=== PATIENT | female | born 1960 | race Two or more races ===

== ENCOUNTER 2024-02-07 23:45 | Emergency (ER) | payer OTHER ==
[2024-02-08 00:07] VITALS: O2SAT 100
[2024-02-08 00:19] LABS: BASOPHILS % (AUTO) 0.6 %; EOSINOPHILS # (AUTO) 0.1 10^3/uL (0.0-0.7); EOSINOPHILS % (AUTO) 1.7 %; HCT - HEMATOCRIT 44.3 % (37.0-47.0); HGB - HEMOGLOBIN 14.2 g/dL (12.0-16.0); LYMPHOCYTES # (AUTO) 3.1 10^3/uL (1.5-3.5); LYMPHOCYTES % (AUTO) 44.2 %; MEAN CORPUSCULAR HGB CONC 32.1 g/dL (32.0-36.0); MEAN CORPUSCULAR VOLUME 90.4 fL (81.0-99.0); MEAN PLATELET VOLUME 10.4 fL (7.9-10.8); MONOCYTES # (AUTO) 0.5 10^3/uL (0.0-1.0); MONOCYTES % (AUTO) 6.9 %; NEUTROPHILS # (AUTO) 3.2 10^3/uL (1.5-6.6); NEUTROPHILS % (AUTO) 46.5 %; PLT - PLATELET COUNT 242 10^3/uL (130-450); RED CELL DISTRIBUTION WIDTH 12.7 % (12.0-15.0)
[2024-02-08 00:34] LABS: ALBUMIN 4.5 g/dL (3.2-5.5); ALBUMIN/GLOBULIN RATIO 1.5 (1.0-2.2); BILIRUBIN,TOTAL 0.3 mg/dL (0.2-1.0); CALCIUM 9.6 mg/dL (8.5-10.3); CREATININE 0.7 mg/dL (0.6-1.3); POTASSIUM 3.7 mmol/L (3.5-4.5); TOTAL PROTEIN 7.6 g/dL (6.4-8.9)
--- NOTE | 2024-02-08 01:03 | ED Physician Documentation ---
History of Present Illness - Stated complaint Stated Complaint: HIGH BP/DIZZY - Chief complaint Chief Complaint: Neuro - History obtained from History obtained from: Patient - Additonal information Additional information: Patient is a 63-year-old female presenting for evaluation of elevated blood pressure reading. Patient states that earlier this evening she was out with her son running errands and she had a brief episode where she felt dizzy and nausea which lasted for few seconds. She reports she usually checks her blood pressure at home even though she does not have a history of hypertension but had not checked it for a few weeks. She checked it this evening and noted that her blood pressure was quite elevated. She then to continue to recheck it and it would not go down. She did have 1 reading that was slightly better than the rest and thought it was improving but then rechecked it and saw that it was going up again which concerned her. She denies a headache, ongoing dizziness, changes to vision, chest pain, difficulty breathing, extremity weakness or numbness. Review of Systems Constitutional: denies: Fever Cardiac: denies: Chest pain / pressure Respiratory: denies: Dyspnea GI: denies: Abdominal Pain Neurologic: denies: Syncope PD PAST MEDICAL HISTORY - Past Medical History Past Medical History: Yes - Past Surgical History Past Surgical History: Yes General: Appendectomy /COMBO WELDER: Hysterectomy - Present Medications Home Medications: Ambulatory Orders Medication Instructions Recorded Confirmed No Known Home Medications 02/07/24 02/07/24 - Allergies Allergies/Adverse Reactions: Allergies Allergy/AdvReac Type Severity Reaction Status Date / Time No Known Drug Allergies Allergy Verified 02/07/24 23:58 - Social History Does the pt smoke?: No Smoking Status: Never smoker Does the pt drink ETOH?: No PD ED PE NORMAL - General General: Alert and oriented X 3, No acute distress, Well developed/nourished - HEENT HEENT: Atraumatic, PERRL, EOMI, Moist mucous membranes, Pharynx benign - Neck Neck: Supple, no meningeal sign - Cardiac Cardiac: RRR, Strong equal pulses - Respiratory Respiratory: No respiratory distress, Clear bilaterally - Abdomen Abdomen: Normal bowel sounds, Soft, Non tender, Non distended - Derm Derm: Warm and dry - Extremities Extremities: No edema - Neuro Neuro: Alert and oriented X 3, looper fixer 2-12 intact, No motor deficit, No sensory deficit, Normal speech, Other (Normal gait) Results - Vitals Vitals: Vital Signs - 24 hr 02/07/24 02/08/24 23:51 01:04 Temperature 36.2 C L Heart Rate 78 Respiratory 16 Rate Blood Pressure 191/111 H 165/94 H O2 Saturation 100 Oxygen O2 Source Room air - EKG (time done) 1234 EKG releavant findings:: EKG personally interpreted by author of this note. Relevant findings are: Rate 65, normal sinus rhythm, no STEMI, QTc 447 - Labs Labs: Laboratory Tests 02/08/24 02/08/24 00:15 00:15 WBC 7.0 RBC 4.90 Hgb 14.2 Hct 44.3 MCV 90.4 MCH 29.0 MCHC 32.1 RDW 12.7 Plt Count 242 MPV 10.4 Neut # (Auto) 3.2 Lymph # (Auto) 3.1 [place] # (Auto) 0.5 Eos # (Auto) 0.1 Baso # (Auto) 0.0 Absolute Nucleated RBC 0.00 Nucleated RBC % 0.0 Sodium 140 Potassium 3.7 Chloride 103 Carbon Dioxide 29 Anion Gap 8.0 BUN 16 Creatinine 0.7 Estimated GFR (MDRD) 85 L Glucose 100 Calcium 9.6 Total Bilirubin 0.3 AST 18 ALT 17 Alkaline Phosphatase 96 Total Protein 7.6 Albumin 4.5 Globulin 3.1 Albumin/Globulin Ratio 1.5 Lipase 36 PD Medical Decision Making - ED course Complexity details: reviewed results, d/w patient ED course: Patient is a 63-year-old presenting for evaluation of a brief episode of dizziness felt a few hours ago lasting a few seconds. This concerned her prompting her to check her blood pressure which she noted to be elevated. She does not have a history of hypertension. She has not had any recurrence of the dizziness and has a normal neuroexam here and is ambulatory without difficulty.Normal cerebellar testing.EKG is reviewed and nonischemic. CBC, chemistries were obtained and without significant findings. No chest pain or symptoms to suggest ACS. Recheck of her blood pressure has shown some improvement and she does not have symptoms to suggest hypertensive emergency. Patient counseled on need for follow-up with her PCP to have her blood pressure rechecked to see if she may need to start treatment for this. Patient counseled on concerning symptoms to return for. Departure - Departure Disposition: 01 Home, Self Care Clinical Impression: Elevated blood pressure reading, Dizziness Condition: Stable Instructions: ED Hypertension Poss Follow-Up: NIDIA Noyola [Provider Group] Comments: Your lab testing today is reassuring. Your blood pressure is elevated but not to the range where we need to do something about it emergently. I would recommend having your blood pressure rechecked at your primary care provider's office in the next week or 2 to see if it truly is staying high and whether you need further treatment for this. Return to the ER if you develop any symptoms such as dizziness, headache, chest pain, trouble breathing. Forms: PCP List Discharge Date/Time: 02/08/24 01:26
[2024-02-08 01:32] VITALS: BP 165/94
== END 2024-02-08 01:26 | disposition home or self-care (01) ==
LOC: ED 23:45
DX: R03.0 Elevated blood-pressure reading, without diagnosis of hypertension (principal); R42 Dizziness and giddiness
CPT/HCPCS: 36415; 80053; 83690; 85025; 93005; 99283; 99284